=== PATIENT | male | born 1940 | race Caucasian/White ===

== ENCOUNTER 2016-11-06 06:30 | Day surgery (SDC) | payer MEDICARE ==
[2016-11-06 06:51] LABS: HEMATOCRIT 39.3 % (37.9-51.0); HEMOGLOBIN 13.5 g/dL (13.5-17.0); HGB HCT DIFFERENCE 1.2; MEAN CORPUSCULAR HEMOGLOBIN 30.9 pg (27.0-33.4); MEAN CORPUSCULAR HGB CONC 34.4 g/dL (32.0-36.0); MEAN CORPUSCULAR VOLUME 90 fl (80-97); RED BLOOD COUNT 4.38 10^6/uL (4.35-5.55); RED CELL DISTRIBUTION WIDTH 13.8 % (11.5-14.0); WHITE BLOOD COUNT 6.4 10^3/uL (4.0-10.5)
[2016-11-06] MEDS ORDERED: NALOXONE HCL INJ/PF 0.4 MG/1 ML SDV ONE (07:29)
[2016-11-06] MEDS ORDERED: ONDANSETRON HCL INJ/PF 4 MG/2 ML SDV ONE (07:29)
[2016-11-06] MEDS ORDERED: GLUCAGON,HUMAN RECOMB 1 MG INJ ONE (07:30)
[2016-11-06] MEDS ORDERED: FLUMAZENIL INJ 0.5 MG/5 ML VIAL IV ONE (07:30)
[2016-11-06] MEDS ORDERED: EPINEPHRINE INJ 1 MG/10 ML DISP.SYRIN ONE (07:30)
[2016-11-06] MEDS: MIDAZOLAM 2 MG/2 ML INJ ONE ×5 (08:10→08:41)
[2016-11-06] MEDS: FENTANYL CITRATE INJ/PF 100 MCG/2 ML AMPUL ONE ×5 (08:12→08:55)
--- NOTE | 2016-11-06 09:05 | Operative Report ---
Operative Report DATE OF SURGERY: 11/06/16 PREOPERATIVE DIAGNOSIS: Family history of colon cancer POSTOPERATIVE DIAGNOSIS: Family history of colon cancer, diverticulosis of the colon. OPERATION: Colonoscopy SURGEON: MATILDE BROWN ANESTHESIA: Moderate Sedation TISSUE REMOVED OR ALTERED: None COMPLICATIONS: None ESTIMATED BLOOD LOSS: none INTRAOPERATIVE FINDINGS: Markedly redundant the colon with multiple large diverticuli especially in the sigmoid colon. PROCEDURE: Informed consent was obtained. Patient was brought to the endoscopy suite. IV sedation with Versed and fentanyl was administered. Digital rectal exam revealed no palpable perianal masses. Endoscope was passed via the patient's anus it was fed to the cecum. Procedure was very difficult due to the marked redundancies of his colon. There were multiple large diverticuli throughout the colon especially the sigmoid colon. Otherwise, the cecum, right colon, transverse colon, descending colon, sigmoid colon and the rectum were all unremarkable with no polyps and no masses. The scope was repassed to aspirate air. Patient tolerated procedure well with no apparent complications and was taken to the recovery area in stable condition. Recommend repeat colonoscopy in 5 years. Sooner if symptoms.
--- NOTE | 2016-11-06 09:06 | PDOC DISCHARGE SUMMARY ---
Discharge Summary (SDC) - Discharge Final Diagnosis: Birdie history of colon cancer. Diverticulosis of the colon. Date of Surgery: 11/06/16 Discharge Date: 11/06/16 Condition: Good Treatment or Instructions: Colonoscopy. May discharge patient home when met discharge criteria. Follow- up with me in 2-3 weeks. Discharge Diet: As Tolerated Discharge Activity: Activity As Tolerated Report the Following to Your Physician Immediately: Increase in Pain, Fever over 101 Degrees, Unusual Bleeding
[2016-11-06 10:01] VITALS: BP 116/84
== END 2016-11-06 10:05 | disposition home or self-care (01) ==
LOC: END 06:30
PROVIDERS: ATTEND Surgery
PROC: 0DJD8ZZ Inspection of Lower Intestinal Tract, Via Natural or Artificial Opening Endoscopic (ICD-10-PCS; principal; 2016-11-06 08:00)
DX: K57.30 Diverticulosis of large intestine without perforation or abscess without bleeding (principal); H91.90 Unspecified hearing loss, unspecified ear; M19.90 Unspecified osteoarthritis, unspecified site; Z80.0 Family history of malignant neoplasm of digestive organs; Z87.19 Personal history of other diseases of the digestive system; Z79.899 Other long term (current) drug therapy
CPT/HCPCS: 45378; 36415; 85027; J2250; J3010; G0121; J0171; J1610; J2310; J2405; J3490

== ENCOUNTER 2018-03-25 23:10 | Emergency (ER) | payer MEDICARE ==
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
[2018-03-26] MEDS ORDERED: RINGERS SOLUTION,LACTATED 1,000 ML IV ONE (00:19)
[2018-03-26 01:15] LABS: ABSOLUTE BASOPHILS # (AUTO) 0.1 10^3/uL (0.0-0.2); ABSOLUTE EOSINOPHILS # (AUTO) 0.1 10^3/uL (0.0-0.6); ABSOLUTE LYMPHOCYTES (AUTO) 0.9 10^3/uL (0.5-4.7); ABSOLUTE MONOCYTES (AUTO) 0.7 10^3/uL (0.1-1.4); ABSOLUTE NEUT (AUTO) 6.7 10^3/uL (1.7-8.2); BASOPHILS % (AUTO) 0.7 % (0-2); EOSINOPHILS % (AUTO) 1.4 % (0-6); HEMATOCRIT 37.1 % (37.9-51.0); HEMOGLOBIN 12.5 g/dL (13.5-17.0); LYMPHOCYTES % (AUTO) 11.1 % (13-45); MEAN CORPUSCULAR HEMOGLOBIN 30.5 pg (27.0-33.4); MEAN CORPUSCULAR HGB CONC 33.7 g/dL (32.0-36.0); MEAN CORPUSCULAR VOLUME 91 fl (80-97); MONOCYTES % (AUTO) 7.8 % (3-13); PLATELET COUNT 129 10^3/uL (150-450); RED CELL DISTRIBUTION WIDTH 14.3 % (11.5-14.0); TOTAL CELLS COUNTED % (AUTO) 100 %; WHITE BLOOD COUNT 8.5 10^3/uL (4.0-10.5)
[2018-03-26 01:46] LABS: ALANINE AMINOTRANSFERASE 34 U/L (21-72); ALBUMIN 4.6 g/dL (3.5-5.0); ALKALINE PHOSPHATASE 50 U/L (38-126); ANION GAP 11 (5-19); ASPARTATE AMINO TRANSFERASE 31 U/L (17-59); BILIRUBIN,DIRECT 0.3 mg/dL (0.0-0.4); BILIRUBIN,TOTAL 0.7 mg/dL (0.2-1.3); BLOOD UREA NITROGEN 35 mg/dL (7-20); CALCIUM 9.2 mg/dL (8.4-10.2); CARBON DIOXIDE 22 mmol/L (22-30); CHLORIDE 109 mmol/L (98-107); GLUCOSE 80 mg/dL (75-110); POTASSIUM 4.4 mmol/L (3.6-5.0); SODIUM 141.8 mmol/L (137-145); TOTAL PROTEIN 7.1 g/dL (6.3-8.2)
[2018-03-26 04:38] VITALS: BP 132/91
== END 2018-03-26 02:38 | disposition home or self-care (01) ==
LOC: ER 23:10
DX: E86.0 Dehydration (principal); R25.2 Cramp and spasm; R61 Generalized hyperhidrosis; M79.1 Myalgia; D69.6 Thrombocytopenia, unspecified; N40.0 Benign prostatic hyperplasia without lower urinary tract symptoms; Z79.899 Other long term (current) drug therapy; Z87.891 Personal history of nicotine dependence
CPT/HCPCS: 99284; 96360; 96361; 36415; 85025; 80053; J7120